=== PATIENT | female | born 1975 | race Caucasian/White ===

== ENCOUNTER 2023-09-17 17:03 | Emergency (ER) | payer MEDICAID ==
[~2023-09-17] VITALS: Ht 167.6 cm; Wt 74.8 kg
[2023-09-17 18:58] VITALS: BP 130/99; PULSE 78; RESP 17; TEMP 97.5; O2SAT 100
[2023-09-17] MEDS ORDERED: BUPRTAB3 PO (20:02)
[2023-09-17] MEDS: buPROPion HCL 100 MG TAB PO ONE (20:32)
== END 2023-09-17 20:36 | disposition home or self-care (01) ==
LOC: ER 17:03
DX: F41.9 Anxiety disorder, unspecified (principal); F32.A Depression, unspecified; Z76.0 Encounter for issue of repeat prescription